=== PATIENT | male | born 1975 | race Caucasian/White ===

== ENCOUNTER 2019-05-21 08:23 | Day surgery (SDC) | payer OTHER, SELFPAY ==
[2019-05-18 14:56] VITALS: BMI 40.6
--- NOTE | 2019-05-21 | PATH_ITS ---
[facility] Accession Number: [id number] . 01 Material submitted: . foot - LEFT FOOT . 01 Clinical history: . SKIN LESION - SUSPECT WART . 01 Diagnosis: Left Foot, Biopsy: Myrmecia. Negative for malignancy. MRV/05/24/2019 . 01 Comment: As part of ongoing quality control engineer, this case is also reviewed by dermatopathologist, Dr. Gabrielle Brody, who agrees with the diagnosis. . 01 Electronically signed: . Enoc Elder MD, Pathologist NPI- [id number] . 01 Gross description: . Received in formalin, labeled skin lesion-suspect wart, are multiple fragments of mayen-chiu friable tissue (2.0 x 0.7 x 0.2 cm in aggregate). Entirely submitted in cassette A1. ([id number]) /MRV . Pathologist provided ICD-10: B07.9 . 01 CPT . 261953 Performed at: [address] [facility] [address], [place], [place] [id number] MD Moy Pierce MD Phone: [phone]
[2019-05-21 10:41] VITALS: BP 118/79; PULSE 74; RESP 16; TEMP 36.6; O2SAT 97; BMI 40.6
--- NOTE | 2019-05-21 12:02 | PM.PREOP ---
Pre-operative Note Interval Note History & Physical reviewed/Exam performed by Physician: Yes Changes to H&P: No
--- NOTE | 2019-05-21 12:02 | PM.OP.1 ---
Operative Date/Time/Diagnoses Date of procedure: 05/21/19 Time of procedure: 12:02 Pre-op diagnosis: Left foot plantar wart Post-op diagnosis: same Procedure & Clinicians Procedure: Left foot plantar wart excision, curretage, biopsy Same procedure as scheduled: Yes Indications: Painful ongoing lesion left foot suspected to be wart. Conservative measures failed to alleviate the pain and he wished to have surgical intervention at this time. Surgeon: Ania Hook Click Yes if Unassisted: Yes Anesthesia Type: Local Operative Notes Closure Type: not applicable Specimen(s): other (Tissue from the lesion left foot sent to pathology for identification) Estimated Blood Loss (mL): 10 Blood products transfused: none Tourniquet time (min): 0 Procedure in detail: The patient was brought to the operating room and placed on the operating table in the supine position. Well padded, appropriately aligned. Patient previously declined services of anesthesia and after a time out was performed, the foot and ankle were prepped and draped in the usual aseptic manner. The fifth metatarsal area was injected with the recorded medications. After check of anesthesia, a 15 blade was used to reduce the hyperkeratosis and verrucoid tissue over the lateral 5th metatarsal lesion of the left ft. A curette was used to remove the verrucoid-type tissue and all bleeders were cauterized and ligated as necessary. A sample of this tissue was sent for identification to pathology. A series of curettage and cauterization was performed to the base and edges/hahn of the lesion. This was done at the base of the lesion and was completed after it was shown and felt to have no further interruption of the area with the former verrucoid ridges. The lesion measured 1.2 x 0.8 cm. The area was irrigated with copious amounts of normal sterile saline. The area was dressed with a lightly compressive sterile dressing including silvadene, xerform, 4x4s, conform, and Coban. He was placed in stockinette and transferred to the PACU with vital signs stable and vascular status intact. An order for a post op shoe was made to be placed on him in the PACU. Complications: none Condition: stable Disposition: PACU Plan for aftercare: Following a period of postoperative monitoring, the patient will be discharged home on written and oral postoperative instructions. He is to keep the dressing intact, elevate the foot when seated at home, and perform weight-bearing only to the heel if necessary. Otherwise he is advised to begin using crutches or a walking stick or cane to allow for reduced pressure to the ball of the foot and side of the foot. We will see him for his 1st postoperative visit dressing change and at that point likely have him begin to apply Silvadene ointment on a periodic dressing change throughout the week. Additional safety instructions are given and he elects to use [id number] anti-inflammatory medication for his pain control.
[2019-05-21] MEDS: CEFAZOLIN 2 GM/100 ML FROZ.PIGGY IV (12:06)
[2019-05-21] MEDS: BUPIVACAINE 0.5% (PF) VIAL 10 ML INJ (12:37)
[2019-05-21] MEDS: SILVER SULFADIAZINE 1% CREAM 25 GM 1 APPLIC TOP (12:40)
[2019-05-21] MEDS: LIDOCAINE 2% W/EPI INJ 20 ML INJ (12:40)
--- NOTE | 2019-05-21 12:45 | SUR.OPER ---
Supine on padded OR bed, head on pillow, arms secured on padded arm boards at <90 degrees abduction, legs uncrossed, safety belt at thigh, tape over blanket over lower legs.
[2019-05-21 12:55] VITALS: BP 98/66; PULSE 65; RESP 20; O2SAT 99
--- NOTE | 2019-05-21 15:09 | SUR.PHASEII ---
1255 Pt arrived from OR awake and alert. VS stable. DRSG CDI. Pt requested to discharge.
== END 2019-05-21 13:20 | disposition home or self-care (01) ==
PROVIDERS: Family Provider Nurse Practitioner; Visit Provider Podiatrist
PROC: (CPT 64782; principal; 2019-05-21 11:15)
DX: B07.0 Plantar wart (principal); M79.672 Pain in left foot; E11.9 Type 2 diabetes mellitus without complications; Z79.84 Long term (current) use of oral hypoglycemic drugs
CPT/HCPCS: 17110; J0690